=== PATIENT | female | born 1995 | race African-American/Black ===

== ENCOUNTER 2017-06-05 16:38 | Emergency (ER) | payer OTHER, MEDICAID ==
[~2017-06-05] VITALS: Ht 162.6 cm; Wt 60.0 kg
[2017-06-05] MEDS ORDERED: ACETAMINOPHEN 500MG TABLET PO ONE (21:15)
[2017-06-05 21:33] LABS: CLARITY URINE CLEAR (CLEAR); COLOR URINE YELLOW (YELLOW); GLUCOSE URINE NEGATIVE (NEGATIVE); KETONES URINE NEGATIVE (NEGATIVE); LEUKOCYTE ESTERASE URINE NEGATIVE (NEGATIVE); NITRITE URINE NEGATIVE (NEGATIVE); OCCULT BLOOD URINE NEGATIVE (NEGATIVE); PH URINE 6.5 (4.5-8.0); PROTEIN URINE NEGATIVE (NEGATIVE); SPECIFIC GRAVITY URINE 1.017 (1.005-1.030); UROBILINOGEN URINE 0.2 E.U./dL (0.2-1.0)
[2017-06-05 23:42] VITALS: BP 113/68
== END 2017-06-05 23:44 | disposition home or self-care (01) ==
LOC: ER 18:54
DX: M54.5 Low back pain (principal); G44.209 Tension-type headache, unspecified, not intractable; Z98.890 Other specified postprocedural states; Z97.5 Presence of (intrauterine) contraceptive device; Z88.3 Allergy status to other anti-infective agents
CPT/HCPCS: 81003; 81025; 99283; Z7610

== ENCOUNTER 2017-10-25 09:59 | Emergency (ER) | payer OTHER, MEDICAID ==
[~2017-10-25] VITALS: Ht 162.6 cm; Wt 60.0 kg
[2017-10-25] MEDS ORDERED: ACETAMINOPHEN 325MG TABLET PO STA (14:26)
[2017-10-25] MEDS ORDERED: AZITHROMYCIN 500 MG TABLET PO ONE (14:30)
[2017-10-25] MEDS ORDERED: CEFTRIAXONE SODIUM 250 MG/VIAL IM ONE (14:30)
[2017-10-25 14:54] LABS: BASOPHILS % 0.8 % (0.0-2.0); EOSINOPHILS % 0.6 % (0.0-5.0); HEMATOCRIT. 40.8 % (36.0-48.0); HEMOGLOBIN. 13.3 g/dL (12.0-16.0); LYMPHOCYTES % 37.3 % (20.0-50.0); MEAN CORPUSCULAR HEMOGLOBIN 28.4 pg (28.0-32.0); MEAN CORPUSCULAR VOLUME 86.8 fL (81.0-99.0); MEAN PLATELET VOLUME 6.7 fl (7.4-10.4); NEUTROPHILS % 54.3 % (40.0-76.0); PLATELET 340 x1000/uL (130-400); RED CELL DISTRIBUTION WIDTH 12.6 % (11.6-14.6)
[2017-10-25 15:48] LABS: CLARITY URINE CLEAR (CLEAR); COLOR URINE YELLOW (YELLOW); KETONES URINE NEGATIVE (NEGATIVE); LEUKOCYTE ESTERASE URINE NEGATIVE (NEGATIVE); NITRITE URINE NEGATIVE (NEGATIVE); OCCULT BLOOD URINE NEGATIVE (NEGATIVE); PROTEIN URINE NEGATIVE (NEGATIVE); SPECIFIC GRAVITY URINE 1.013 (1.005-1.030); UROBILINOGEN URINE 0.2 E.U./dL (0.2-1.0)
[2017-10-25 16:46] VITALS: BP 110/60
[2017-10-28 04:16] LABS: CHLAMYDIA TRACHOMATIS NAA Negative (Negative); NEISSERIA GONORRHOEAE NAA Positive (Negative)
== END 2017-10-25 16:47 | disposition home or self-care (01) ==
LOC: ER 12:19
DX: R10.30 Lower abdominal pain, unspecified (principal); N89.8 Other specified noninflammatory disorders of vagina; Z88.2 Allergy status to sulfonamides
CPT/HCPCS: 36415; 81003; 81025; 85025; 87210; 87491; 87591; 96372; 99284; J0696

== ENCOUNTER 2019-08-07 14:53 | Emergency (ER) | payer BC, OTHER ==
[~2019-08-07] VITALS: Ht 162.6 cm; Wt 59.0 kg
[2019-08-07 16:17] VITALS: BP 109/48
[2019-08-07] MEDS ORDERED: IBUPROFEN 600MG TABLET PO ONE (18:15)
== END 2019-08-07 19:18 | disposition home or self-care (01) ==
LOC: ER 14:53
DX: M79.671 Pain in right foot (principal); Z98.890 Other specified postprocedural states; Z88.2 Allergy status to sulfonamides; Z88.8 Allergy status to other drugs, medicaments and biological substances
CPT/HCPCS: 73630; 81025; 99283; Z7610